=== PATIENT | female | born 1985 | race Caucasian/White ===

== ENCOUNTER 2022-11-30 22:14 | Emergency (ER) | payer BC ==
[~2022-11-30] VITALS: Ht 165.1 cm; Wt 90.7 kg
[2022-11-30 22:30] VITALS: BP 131/70; PULSE 90; RESP 17; TEMP 98; O2SAT 99
[2022-12-01] MEDS ORDERED: KETOROLAC 30 MG/ML VIAL IM ONE (00:35)
[2022-12-01] MEDS ORDERED: NAPR-54 PO (00:50)
[2022-12-01] MEDS ORDERED: ACET-8905 PO (00:50)
== END 2022-12-01 01:04 | disposition home or self-care (01) ==
LOC: MED 22:14
DX: S82.491A Other fracture of shaft of right fibula, initial encounter for closed fracture (principal); X58.XXXA Exposure to other specified factors, initial encounter; Y93.89 Activity, other specified; Y92.89 Other specified places as the place of occurrence of the external cause; Y99.8 Other external cause status
CPT/HCPCS: 29515; 73610; 96372; 99283; J1885

== ENCOUNTER 2022-12-11 16:10 | Emergency (ER) | payer BC ==
[~2022-12-11] VITALS: Ht 165.1 cm; Wt 90.7 kg
[~2022-12-11 16:10] MED LIST: ACET-8905 PO; NAPR-54 PO
[2022-12-11 16:24] VITALS: BP 149/91; PULSE 105; RESP 16; TEMP 97.4; O2SAT 99
[2022-12-11 18:24] VITALS: BP 143/89; PULSE 87; RESP 16; TEMP 97.4; O2SAT 98
== END 2022-12-11 18:25 | disposition home or self-care (01) ==
LOC: MED 16:10
DX: S82.891A Other fracture of right lower leg, initial encounter for closed fracture (principal); Z79.899 Other long term (current) drug therapy; X58.XXXA Exposure to other specified factors, initial encounter; Y93.89 Activity, other specified; Y92.89 Other specified places as the place of occurrence of the external cause; Y99.8 Other external cause status
CPT/HCPCS: 29515; 99283

== ENCOUNTER 2022-12-27 21:37 | Emergency (ER) | payer BC ==
[~2022-12-27] VITALS: Ht 165.1 cm; Wt 90.7 kg
[2022-12-27 21:55] VITALS: BP 128/78; PULSE 87; RESP 17; TEMP 98; O2SAT 98
[2022-12-27] MEDS ORDERED: HYDROcodone/APAP 5/325 MG 1 TAB TAB PO ONE (23:15)
[2022-12-27] MEDS ORDERED: NAPR-54 PO (23:54)
[2022-12-28 00:29] VITALS: BP 128/78; PULSE 87; RESP 17; TEMP 98; O2SAT 98
== END 2022-12-28 00:29 | disposition home or self-care (01) ==
LOC: MED 21:37
DX: S82.61XA Displaced fracture of lateral malleolus of right fibula, initial encounter for closed fracture (principal); X58.XXXA Exposure to other specified factors, initial encounter; Y93.89 Activity, other specified; Y92.89 Other specified places as the place of occurrence of the external cause; Y99.8 Other external cause status
CPT/HCPCS: 29515; 73600; 99283; Q0092

== ENCOUNTER 2023-01-25 12:07 | Emergency (ER) | payer BC ==
[~2023-01-25] VITALS: Ht 162.6 cm; Wt 90.7 kg
[2023-01-25 12:32] VITALS: PULSE 82; RESP 20; TEMP 98.1; O2SAT 99
[2023-01-25] MEDS ORDERED: IBUP-2213 PO (13:37)
[2023-01-25 13:45] VITALS: BP 121/73; PULSE 82; RESP 20; TEMP 98.1; O2SAT 99
== END 2023-01-25 13:45 | disposition home or self-care (01) ==
LOC: MED 12:07
DX: S82.401D Unspecified fracture of shaft of right fibula, subsequent encounter for closed fracture with routine healing (principal); Z79.1 Long term (current) use of non-steroidal anti-inflammatories (NSAID); Z79.899 Other long term (current) drug therapy; X58.XXXD Exposure to other specified factors, subsequent encounter
CPT/HCPCS: 29515; 99283